=== PATIENT | female | born 1970 | race Caucasian/White ===

== ENCOUNTER → 2023-05-28 08:13 | Outpatient (REF) | payer BC, SELFPAY | LOC: RAD 08:13 | PROVIDERS: ATTENDING PHYSICIAN Family Medicine | DX: S32.2XXS Fracture of coccyx, sequela (principal) | CPT/HCPCS: 77080 ==

== ENCOUNTER → 2023-08-19 06:28 | Outpatient (REF) | payer BC, SELFPAY | LOC: HWWDC 06:28 | PROVIDERS: ATTENDING PHYSICIAN Family Medicine Geriatric Medicine; FAMILY PHYSICIAN Family Medicine | DX: Z12.31 Encounter for screening mammogram for malignant neoplasm of breast (principal) | CPT/HCPCS: 77063; 77067 ==

== ENCOUNTER → 2023-09-23 09:59 | Outpatient (REF) | payer BC, SELFPAY | LOC: RAD 09:59 | PROVIDERS: ATTENDING PHYSICIAN Family Medicine | DX: M25.512 Pain in left shoulder (principal); G89.29 Other chronic pain | CPT/HCPCS: 73030 ==

== ENCOUNTER 2024-08-17 06:28 | Day surgery (SDC) | payer BC, SELFPAY | END 2024-08-17 09:23 | disposition home or self-care (01) | LOC: GI 06:28 | PROVIDERS: ATTENDING PHYSICIAN Internal Medicine | DX: Q43.8 Other specified congenital malformations of intestine (principal); K56.2 Volvulus; K57.30 Diverticulosis of large intestine without perforation or abscess without bleeding; K64.9 Unspecified hemorrhoids; Z83.719 Family history of colon polyps, unspecified | CPT/HCPCS: 45378 ==

== ENCOUNTER → 2024-08-23 12:51 | Outpatient (REF) | payer BC, SELFPAY | LOC: WDC 12:51 | PROVIDERS: ATTENDING PHYSICIAN Family Medicine Geriatric Medicine; FAMILY PHYSICIAN Family Medicine | DX: Z12.39 Encounter for other screening for malignant neoplasm of breast (principal); Z12.31 Encounter for screening mammogram for malignant neoplasm of breast | CPT/HCPCS: 77063; 77067 ==